=== PATIENT | female | born 1950 | race Caucasian/White ===

== ENCOUNTER 2017-08-06 09:25 | Outpatient (CLI) | payer MEDICARE ==
--- NOTE | 2017-08-06 12:33 | Ultrasound Report ---
AORTA SCREEN: 08/06/2017 CLINICAL INDICATION: Family history of abdominal aortic aneurysm. TECHNIQUE: Real-time scanning was performed with client care representative static images obtained. FINDINGS: The abdominal aorta is normal in caliber, measuring 2.2 cm proximally, 1.9 cm in the mid p ortion, and 1.7 cm distally. The iliacs are normal in caliber. No free fluid is present. IMPRESSION: NO EVIDENCE OF ABDOMINAL AORTIC ANEURYSM. JOB #: [id number] EXT JOB #:[id number]
== END 2017-08-06 09:26 | disposition home or self-care (01) ==
LOC: DI 09:25
PROVIDERS: ATTEND Family Medicine
DX: R93.1 Abnormal findings on diagnostic imaging of heart and coronary circulation (principal); Z82.49 Family history of ischemic heart disease and other diseases of the circulatory system
CPT/HCPCS: 76706

== ENCOUNTER 2022-08-29 08:00 | Outpatient (CLI) | payer MEDICARE, OTHER ==
--- NOTE | 2022-08-29 11:57 | XRAY Report ---
PROCEDURE: Chest 2 View X-Ray INDICATIONS: COUGH TECHNIQUE: 2 view(s) of the chest. COMPARISON: None. FINDINGS: Surgical changes and devices: None. Lungs and pleura: No pleural effusions or pneumothorax. Lungs are clear. Mediastinum: Mediastinal contours are normal. Heart size is normal. Bones and chest wall: No suspicious bony abnormalities. Soft tissues appear unremarkable. IMPRESSION: No acute pulmonary process. Reviewed by: Yola Marr MD on 08/29/2022 11:56 AM PDT Approved by: Yola Marr MD on 08/29/2022 11:56 AM PDT Station ID: [id number]
== END 2022-08-29 08:01 | disposition home or self-care (01) ==
LOC: DI.S 08:00
PROVIDERS: ATTEND Physician Assistant Medical
DX: R05.9 Cough, unspecified (principal)